=== PATIENT | female | born 1965 | race Caucasian/White ===

== ENCOUNTER 2017-11-14 17:24 | Emergency (ER) | payer OTHER ==
[2017-11-14] MEDS ORDERED: Sodium Chloride 0.9% 1,000 ML IV ONE (18:15)
[2017-11-14 18:54] LABS: SQUAMOUS EPITHIAL 1 /hpf (0-5); URINE BACTERIA RARE (<OCC); URINE BILIRUBIN NEGATIVE (NEGATIVE); URINE CLARITY Clear (Clear); URINE COLOR Yellow (YELLOW); URINE GLUCOSE (UA) NORMAL (Normal); URINE LEUKOCYTE ESTERASE NEG Leu/uL (Negative); URINE PROTEIN NEGATIVE (NEGATIVE); URINE UROBILINOGEN NORMAL mg/dL (0.2-1.0)
[2017-11-14 18:56] LABS: BASO # 0.1 K/uL (0.0-0.2); BASO % 0.8 % (0.0-2.0); EOS # 0.1 K/uL (0.0-0.7); EOS % 1.2 % (0.0-4.0); HEMOGLOBIN 13.4 g/dL (11.0-16.0); LYMPH # 1.3 K/uL (1.0-4.3); LYMPH % 20.2 % (20.0-40.0); MEAN CELL VOLUME 87.4 fL (81.0-99.0); MEAN CORPUSCULAR HEMOGLOBIN 29.7 pg (27.0-31.0); MEAN PLATELET VOLUME 9.3 fL (7.2-11.7); MONO # 0.5 K/uL (0.0-0.8); MONO % 7.4 % (0.0-10.0); NEUT # 4.6 K/uL (1.8-7.0); NEUT % 70.4 % (50.0-75.0); NRBC % 1.9 % (0.0-2.0); RBC 4.51 Mil/uL (3.80-5.20); RED CELL DISTRIBUTION WIDTH 12.7 % (11.5-14.5); WHITE BLOOD COUNT 6.5 K/uL (4.8-10.8)
[2017-11-14 18:57] LABS: URINE BLOOD TRACE (NEGATIVE)
[2017-11-14 19:19] LABS: ALB/GLOB RATIO 1.1 (1.0-2.1); ALBUMIN 3.9 g/dL (3.5-5.0); ALT/SGPT 8 U/L (9-52); AST/SGOT 25 U/L (14-36); BLOOD UREA NITROGEN 9 mg/dL (7-17); CALCIUM 9.4 mg/dl (8.6-10.4); GFR AFRICAN-AMERICAN > 60; GFR NON-AFRICAN AMERICAN > 60; LIPASE 45 U/L (23-300)
[2017-11-14] MEDS ORDERED: Iodixanol 320 MG/ML 100 ML BOTTLE IV ONE (19:40)
[2017-11-14 21:02] VITALS: RESP 18
--- NOTE | 2017-11-14 21:51 | C.PDOC ---
History Of Present Illness 51 year old female presents to the emergency department after being sent by her PMD Dr. White for evaluation of lower abdominal pain. Patient reports experiencing pain since Friday, and has taken OTC medications with no relief. Patient states she is experiencing nausea and a decreased appetite, but denies vomiting, fever, hematuria or hematochezia. Chief Complaint (Nursing): Abdominal Pain History Per: Patient History/Exam Limitations: no limitations Onset/Duration Of Symptoms: Days (4) Current Symptoms Are (Timing): Still Present Location Of Pain/Discomfort: Diffuse, RLQ, LLQ Quality Of Discomfort: "Pain" Associated Symptoms: Nausea, Loss Of Appetite. denies: Fever, Vomiting, Urinary Symptoms Past Medical History Reviewed: Historical Data, Nursing Documentation, Vital Signs Vital Signs: Last Vital Signs Temp 97.9 F 11/14/17 22:58 Pulse 80 11/14/17 22:58 Resp 18 11/14/17 22:58 BP 133/75 11/14/17 22:58 Pulse Ox 99 11/15/17 00:53 - Medical History PMH: No Chronic Diseases Surgical History: No Surg Hx Family History: States: No Known Family Hx - Social History Hx Alcohol Use: No Hx Substance Use: No - Immunization History Hx Tetanus Toxoid Vaccination: No Hx Influenza Vaccination: No Hx Pneumococcal Vaccination: No Review Of Systems Except As Marked, All Systems Reviewed And Found Negative. Constitutional: Negative for: Fever Gastrointestinal: Positive for: Nausea, Abdominal Pain. Negative for: Vomiting , Diarrhea, Hematochezia Genitourinary: Negative for: Hematuria Physical Exam - Physical Exam Appears: Non-toxic, No Acute Distress Skin: Warm, Dry Head: Atraumatic, Normacephalic Eye(s): bilateral: Normal Inspection Nose: Normal Oral Mucosa: Moist Neck: Normal Chest: Symmetrical Cardiovascular: Rhythm Regular Respiratory: Normal Breath Sounds Gastrointestinal/Abdominal: Soft, Tenderness (lower abdominal tenderness) Neurological/Psych: Oriented x3, Normal Speech ED Course And Treatment - Laboratory Results Result Diagrams: 11/14/17 18:50 11/14/17 18:50 O2 Sat by Pulse Oximetry: 99 (RA) Pulse Ox Interpretation: Normal Progress Note: Plan: CT Abdomen and Pelvis. CMP. Lipase. CBC. NaCl IV Fluids. Toradol 30mg IVP. Urine Culture. Urinalysis Disposition - Disposition Referrals: [facility], [Non-Staff] - Disposition: HOME/ ROUTINE Disposition Time: 00:45 Condition: GOOD Additional Instructions: DAVID MARTINEZ, thank you for letting us take care of you today. Your provider was Harsh Moy DO. The emergency medical care you received today was directed at your acute symptoms. If you were prescribed any medication, please fill it and take as directed. It may take several days for your symptoms to resolve. Return to the Emergency Department if your symptoms worsen, do not improve, or if you have any other problems. Please contact your doctor or call one of the physicians/clinics you have been referred to that are listed on the Patient Visit Information form that is included in your discharge packet. Bring any paperwork you were given at discharge with you along with any medications you are taking to your follow up visit. Our treatment cannot replace ongoing medical care by a primary care provider outside of the emergency department. Thank you for allowing the [facility] team to be part of your care today. You may take the Tramadol you have at home for pain. Follow up with your primary doctor and your [facility] doctor next week for re- evaluation and further management. Instructions: Uterine Fibroids (DC) Forms: Mister Mario (Slovenian) - Clinical Impression Clinical Impression: Uterine fibroid - Scribe Statement The provider has reviewed the documentation as recorded by the Scribe (Juan Rivera) Provider Attestation: All medical record entries made by the Scribe were at my direction and personally dictated by me. I have reviewed the chart and agree that the record accurately reflects my personal performance of the history, physical exam, medical decision making, and the department course for this patient. I have also personally directed, reviewed, and agree with the discharge instructions and disposition.
--- NOTE | 2017-11-14 22:42 | CT ---
EXAM: CT Abdomen and Pelvis With Intravenous Contrast EXAM DATE/TIME: 11/14/2017 6:15 PM CLINICAL HISTORY: 51 years old, female; Pain; Abdominal pain; Generalized; Additional info: Lower abdominal pain TECHNIQUE: Axial computed tomography images of the abdomen and pelvis with intravenous contrast. All CT scans at this facility use one or more dose reduction techniques, viz.: automated exposure control; ma/kV adjustment per patient size (including targeted exams where dose is matched to indication; i.e. head); or iterative reconstruction technique. Coronal and sagittal reformatted images were created and reviewed. CONTRAST: 100 mL of visipaque 320 administered intravenously. COMPARISON: No relevant prior studies available. FINDINGS: LUNG BASES: No significant abnormality seen. ABDOMEN: LIVER: Low density probable cyst in the liver. This measures 6 mm. GALLBLADDER AND BILE DUCTS: No CT evidence of acute cholecystitis. No evidence of significant biliary ductal dilatation. PANCREAS: No CT evidence of acute pancreatitis. SPLEEN: No acute abnormality of the spleen identified. ADRENALS: No acute abnormality of the adrenal glands identified. KIDNEYS AND URETERS: 2.5 cm intermediate density lesion in the right kidney, not definitely a cyst. Recommend follow-up renal ultrasound or renal protocol CT for further evaluation, on a nonemergent basis, unless otherwise clinically indicated. Additional low density probable tiny cysts in the kidneys bilaterally. STOMACH AND BOWEL: Retained stool noted throughout the colon, with no evidence of a significant large bowel obstruction or fecal impaction. Bowel is otherwise unremarkable in appearance. No evidence of bowel obstruction. PELVIS: APPENDIX: Normal appendix is not seen, however, there are no significant inflammatory changes visualized in the expected location of the appendix to suggest appendicitis. Recommend clinical correlation. BLADDER: No acute abnormality of the bladder identified. REPRODUCTIVE: Best seen on image 70 of series 2, there is a 6.8 x 4.7 cm ovoid, solid-appearing masslike area in the left pelvis, suspicious for an abnormally enlarged left ovary. Its margins appear ill-defined. There is mild, diffuse stranding of the nearby pelvic fat. There is diffuse prominence of the left adnexal vessels. Multiple round, enhancing uterine masses, most likely representing multiple uterine. No evidence of significant right adnexal masses. ABDOMEN and PELVIS: INTRAPERITONEAL SPACE: Small amount of free fluid in the pelvis. Small amount of free fluid in the left abdomen. No evidence of free air. BONES/JOINTS: No acute fractures or other acute bony abnormality noted. SOFT TISSUES: No acute abnormality of the visualized soft tissues is seen. VASCULATURE: No evidence of abdominal aortic aneurysm or dissection. LYMPH NODES: No evidence of diffuse lymphadenopathy. IMPRESSION: - Findings highly suspicious for an enlarged left ovary. with ill-defined margins. There is stranding/infiltration of the nearby pelvic fat and prominence of the left adnexal vessels. Findings are of uncertain etiology, but a left ovarian neoplasm is not excluded. Pelvic inflammatory disease is considered unlikely in a patient of this age. Pelvic ultrasound is recommended for further evaluation. - Pelvic and abdominal free fluid, small in amount. - Otherwise, no evidence of significant acute process. - Incidental indeterminate renal lesion. See above. - See above for remaining findings.
--- NOTE | 2017-11-15 00:40 | US ---
EXAM: US Pelvis Complete, Transabdominal US Pelvis, Transvaginal EXAM DATE/TIME: 11/14/2017 10:47 PM CLINICAL HISTORY: 51 years old, female; Signs and symptoms; Other: Lt pelvic pain; Additional info: ? Left ovarian mass seen on CT TECHNIQUE: Real-time transabdominal and transvaginal pelvic ultrasound (complete) with image documentation. Transvaginal imaging was used for better evaluation of the endometrium and adnexa. COMPARISON: Recent pelvic CT. FINDINGS: Uterus: Enlarged, measuring 11.7 x 7.5 x 7.9 cm. Multiple round, solid myometrial masses are identified, most compatible with multiple uterine fibroids. Location and measurements are as follows: intramural fibroid, in the mid uterus, measuring 3.2 x 2.6 x 3.1 cm; intramural fibroid, in the mid uterus, measuring 2.8 x 2.5 x 3.1 cm; intramural fibroid, in the fundus, measuring 2.7 x 2.3 x 2.8 cm. Endometrial stripe does not appear abnormally thickened, with a double layer thickness of 4 mm. Tiny amount of fluid is seen in the endometrial canal. Right ovary: Within normal limits in appearance. Measures 2.3 x 1.5 x 2.0 cm. Flow seen in the right ovary on color and Doppler imaging, with no evidence of torsion. Left adnexa: A large, solid mass is visualized, ovoid in shape, measuring 6.9 x 4.4 x 5.5 cm, and likely corresponding to the mass seen on the recent CT. It has ultrasound features suggestive of a large fibroid. It is heterogeneous in echogenicity and associated with shadowing. It does appear to demonstrate some flow within it on the transabdominal scan. Also seen in the left adnexa, separate from this large mass, is a smaller, solid appearing, rounded masslike area, measuring 3.9 x 3.5 x 3.2 cm. This could represent the normal left, given its appearance. It does demonstrate flow within it on color and Doppler imaging. Free fluid: Small amount of free fluid is identified in the adnexal regions bilaterally. IMPRESSION: As seen on the recent pelvic CT, there is a large 6.9 x 5.5 cm solid left adnexal mass. This has ultrasound features suggestive of a uterine fibroid, and it could represent a large, exophytic left uterine fibroid. Multiple additional intrauterine fibroids are seen. The normal left ovary is probably seen separate from the large solid left adnexal mass. Consider followup pelvic MRI to confirm that the solid left adnexa mass is indeed a fibroid. Small amount of free fluid. See above for remaining findings.
[2017-11-15 01:03] VITALS: BP 147/72; PULSE 63; TEMP 98.3; O2SAT 98
== END 2017-11-15 01:09 | disposition home or self-care (01) ==
LOC: C.ER 17:24
DX: D25.9 Leiomyoma of uterus, unspecified (principal)
CPT/HCPCS: 74177; 76830; 76856; 80053; 81001; 83690; 85025; 87086; 96374; 99285; J1885; J7030; Q9967